=== PATIENT | female | born 1995 | race Caucasian/White ===

== ENCOUNTER 2021-05-12 16:33 | Emergency (ER) | payer MEDICAID ==
[~2021-05-12] VITALS: Ht 162.6 cm; Wt 46.7 kg
[2021-05-12 16:38] VITALS: BP 97/61
--- NOTE | 2021-05-12 16:43 | NUR ---
PATIENT PRESENTS TO ED WITH UTI SYMPTOMS, DYSURIA/FREQUENCY X1 MONTH . PT STATES SHE IS 3 WEEKS AND IS HAVING VAGINAL SPOTTING WITH MILD PELVIC PAIN . DENIES N/V/D; SKIN IS PINK/WARM/DRY; AAOX4 WITH EVEN AND STEADY GAIT; LUNGS CLEAR BL; HR EVEN AND REGULAR; PT DENIES ANY FEVER, CP, SOB, OR COUGH AT THIS TIME; PATIENT STATES PAIN OF 5/10 AT THIS TIME; VSS; PATIENT POSITIONED FOR COMFORT; HOB ELEVATED; BEDRAILS UP X2; BED DOWN. ER MD MADE AWARE OF PT STATUS.
[2021-05-12 17:18] LABS: BASOPHILS % (AUTO) 0.3 % (0.0-2.0); EOSINOPHILS # (AUTO) 0.1 K/uL (0-0.4); EOSINOPHILS % (AUTO) 0.8 % (0.0-4.0); HEMATOCRIT 33.6 % (36-48); HEMOGLOBIN 11.4 g/dL (12.0-16.0); LYMPHOCYTES # (AUTO) 2.1 K/uL (2.5-16.5); LYMPHOCYTES % (AUTO) 23.8 % (20.5-51.1); MEAN CORPUSCULAR HEMOGLOBIN 31 pg (27-31); MEAN CORPUSCULAR HGB CONC 34 g/dL (33-37); MEAN CORPUSCULAR VOLUME 90.1 fL (80-94); MONOCYTES # (AUTO) 0.9 K/uL (0.8-1.0); MONOCYTES % (AUTO) 10.1 % (1.7-9.3); NEUTROPHILS # (AUTO) 5.7 K/uL (1.8-7.7); PLATELET COUNT (AUTO) 197 K/uL (140-450); RED BLOOD CELL COUNT(AUTO) 3.73 MIL/uL (4.20-5.40); RED CELL DISTRIBUTION WIDTH 13.3 % (11.6-13.7); WHITE BLOOD COUNT (AUTO) 8.8 K/uL (4.8-10.8)
[2021-05-12 17:24] LABS: BILIRUBIN,URINE NEGATIVE (NEGATIVE); BLOOD, URINE 2+ (NEGATIVE); LEUKOCYTE ESTERASE ,URINE 3+ (NEGATIVE); NITRITE, URINE NEGATIVE (NEGATIVE); PH,URINE 6.5 (5.0-9.0); UGLUCOSE NEGATIVE (NEGATIVE)
[2021-05-12 17:25] LABS: APPEARANCE,URINE HAZY (CLEAR); COLOR,URINE STRAW (YELLOW)
[2021-05-12 17:42] LABS: RBC,URINE 0-5 /HPF (0-5); WBC,URINE 20-60 /HPF (0-5)
--- NOTE | 2021-05-12 17:51 | NUR ---
PT TAKEN TO BED 10.
--- NOTE | 2021-05-12 18:15 | NUR ---
DR RM EVALUATING PT AT BEDSIDE
[2021-05-12] MEDS ORDERED: PREN-556 PO (18:47)
[2021-05-12] MEDS ORDERED: NITR100C7 PO (18:47)
[2021-05-12] MEDS ORDERED: METO-485 PO (18:47)
[2021-05-12 19:19] VITALS: BP 97/61
--- NOTE | 2021-05-12 19:19 | NUR ---
Patient discharged with v/s stable. Written and verbal after care instructions ABOUT MEDICATIONS, UTI, THREATENED MISCARRIAGE given and explained. Patient alert, oriented and verbalized understanding of instructions. Ambulatory with steady gait. All questions addressed prior to discharge. ID band removed. Patient advised to follow up with PMD. Rx of METOCLOPROMIDE HCL, MACROBID, AND VITAMINS given. Patient educated on indication of medication including possible reaction and side effects. Opportunity to ask questions provided and answered.
== END 2021-05-12 19:16 | disposition home or self-care (01) ==
LOC: MED 16:33
DX: O20.0 Threatened abortion (principal); O23.41 Unspecified infection of urinary tract in pregnancy, first trimester; O20.8 Other hemorrhage in early pregnancy
CPT/HCPCS: 36415; 76801; 81001; 81025; 84702; 85025; 86900; 86901; 87086; 99284

== ENCOUNTER 2021-10-28 20:45 | Observation (INO) | payer MEDICAID, SELFPAY ==
[~2021-10-28] VITALS: Ht 157.5 cm; Wt 49.9 kg
[~2021-10-28 20:45] MED LIST: METO-485 PO; NITR100C7 PO; PREN-556 PO
[2021-10-28] MEDS ORDERED: cefTRIAXone 1,000 MG in LIDOCAINE MPF 1% 2.1 ML IM ONE (21:40)
[2021-10-28] MEDS ORDERED: cefTRIAXone 1,000 MG in LIDOCAINE MPF 1% 2.1 ML IM SCH (22:30)
[2021-10-28 22:37] LABS: APPEARANCE,URINE CLEAR (CLEAR); BILIRUBIN,URINE NEGATIVE (NEGATIVE); BLOOD, URINE TRACE-I (NEGATIVE); LEUKOCYTE ESTERASE ,URINE 1+ (NEGATIVE); NITRITE, URINE NEGATIVE (NEGATIVE); PH,URINE 6.5 (5.0-9.0); UGLUCOSE NEGATIVE (NEGATIVE)
[2021-10-28] MEDS ORDERED: cefTRIAXone 1,000 MG VIAL ONE (22:39)
[2021-10-28 22:51] VITALS: BP 102/60
[2021-10-28 23:12] LABS: COLOR,URINE STRAW (YELLOW)
[2021-10-28 23:13] LABS: RBC,URINE 0-5 /HPF (0-5)
== END 2021-10-28 23:20 | disposition home or self-care (01) ==
LOC: MLD 20:45
PROVIDERS: ADMIT Obstetrics & Gynecology; ATTEND Obstetrics & Gynecology
DX: O60.03 Preterm labor without delivery, third trimester (principal); O42.913 Preterm premature rupture of membranes, unspecified as to length of time between rupture and onset of labor, third trimester; Z3A.32 32 weeks gestation of pregnancy; Z64.1 Problems related to multiparity
CPT/HCPCS: 59025; 76815; 81001; 87086; G0378; J0696; Q0092